=== PATIENT | female | born 1985 ===

== ENCOUNTER 2016-09-13 07:50 | Day surgery (SDC) | payer SELFPAY ==
[2016-09-07 10:46] VITALS: BMI 25.4
[~2016-09-13 07:50] MED LIST: Lactated Ringer's 500 ML IV ONE; Phenylephrine 2.5% Opht Soln OS SCH
[2016-09-13] MEDS ORDERED: MethylPREDNISolone 40 mg Vial ONE (08:03)
[2016-09-13] MEDS ORDERED: Tobramycin/Dexamethasone OPHT OINT ONE (08:03)
[2016-09-13] MEDS ORDERED: Lidocaine 2% w Epi 1:100,000 Inj IJ ONE (08:03)
[2016-09-13] MEDS ORDERED: Lactated Ringer's 500 ML IV ONE (08:30)
[2016-09-13] MEDS ORDERED: Gentamicin 80 mg/2mL Inj. ONE (08:33)
[2016-09-13 08:55] VITALS: RESP 20
[2016-09-13] MEDS ORDERED: Propofol 10 mg/ml Inj (20 ML) ONE (09:46)
[2016-09-13 10:34] VITALS: TEMP 97.4; O2SAT 100
[2016-09-13 11:16] VITALS: BP 118/72; PULSE 66
--- NOTE | 2016-09-13 12:36 | OP ---
PROCEDURE DATE: 09/13/2016 PREOPERATIVE DIAGNOSIS: Pterygium, left eye. POSTOPERATIVE DIAGNOSIS: Pterygium, left eye. Peripheral progressive pterygium. SURGERY: Pterygium excision with amniotic membrane graft, left eye. SURGEON: Edison Montes MD. ANESTHESIA: Retrobulbar block. COMPLICATIONS: None. ESTIMATED BLOOD LOSS: 0.5 mL. DESCRIPTION OF PROCEDURE: The patient was brought to the operating room, properly identified. Anesthesia staff gave retrobulbar block and gave sedation. Retrobulbar block was given to the left eye with no complications. The patient, sitting superiorly, attention was then turned to the left eye. There was noted to be a nasal pterygium. _0.12___was used to hold the pterygium. Lidocaine with epinephrine was then injected into the pterygium. Once this was done, the pterygium _was cut with Sirena scissor. A maurisio bur was used to smooth out the corneal portion. Hemostasis was maintained with cautery. Mitomycin C was then placed on the bare sclera for 1-1/2 minutes and then washed off with 3 large syringes of BSS. Once this was done, _amniotic_ membrane was cut into the appropriate size and glued into place. Subconjunctival antibiotics and steroids were then given. The patient's eye was covered with sterile patch and shield, and returned to the recovery room in stable condition. Edisno Montes MD cc: [id number] TT: 09/13/2016 10:44:12 jn MTDD
== END 2016-09-13 11:16 | disposition home or self-care (01) ==
LOC: C.SDS 07:50
PROVIDERS: ATTEND Ophthalmology
DX: H11.052 Peripheral pterygium, progressive, left eye (principal)
CPT/HCPCS: 65426; 88304; J1580; J2704; J2920; J7120; J9280